=== PATIENT | female | born 1960 | race Caucasian/White ===

== ENCOUNTER 2016-12-16 07:43 | Emergency (ER) | payer OTHER ==
[2016-12-16 08:22] VITALS: BP 110/66
[2016-12-16] MEDS ORDERED: Lidocaine/Epineph/Tetraca SOL* (LET solution) 4 ML BTL TOPICAL ONE (08:33)
[2016-12-16] MEDS ORDERED: Acetaminophen TAB* 325 MG PO ONE (08:33)
--- NOTE | 2016-12-30 23:51 | ED ---
Colleen Christensen Matthew, scribed for Paul Cueto MD on 12/16/16 at 0916 . Laceration/Wound HPI - HPI Summary HPI Summary: A 56 y/o female presents to the ED with a facial laceration at 07:45 this morning while at work. The pain is rated 5/10 in severity. The patient states that a part of a filtration unit weighing approximately 25LBS hit the patient on the nose and chin. The patient denies LOC and headache. Her last tetanus shot was a few years ago. - History of Current Complaint Stated Complaint: FACIAL LAC Time Seen by Provider: 12/16/16 08:30 Hx Obtained From: Patient Onset/Duration: Sudden Onset, Lasting Hours, Still Present Aggravating: Nothing Timing: Constant Onset Severity: Moderate Current Severity: Moderate Pain Intensity: 5 Pain Scale Used: 0-10 Numeric Associated Signs & Symptoms: Pain - Facial - Allergy/Home Medications Allergies/Adverse Reactions: Allergies Allergy/AdvReac Type Severity Reaction Status Date / Time No Known Allergies Allergy Verified 02/13/15 05:50 PMH/Surg Hx/FS Hx/Imm Hx Previously Healthy: Yes Endocrine/Hematology History: Denies: Hx Diabetes - Cancer History Hx Chemotherapy: No Hx Radiation Therapy: No Infectious Disease History: No Infectious Disease History: Denies: Traveled Outside the [place] in Last 30 Days - Family History Family History: No FHx of breast CA - Social History Alcohol Use: Occasionally Substance Use Type: Reports: None Smoking Status (MU): Never Smoked Tobacco Review of Systems Constitutional: Negative Negative: Fever, Chills Eyes: Negative Negative: Erythema ENT: Negative Negative: Sore Throat Cardiovascular: Negative Negative: Chest Pain Respiratory: Negative Negative: Shortness Of Breath, Cough Gastrointestinal: Negative Negative: Abdominal Pain, Vomiting, Diarrhea, Nausea Genitourinary: Negative Negative: dysuria, hematuria Musculoskeletal: Negative Negative: Myalgia, Edema - pedal Skin: Other - facial lacerations (Nose & Chin) Neurological: Negative Psychological: Normal All Other Systems Reviewed And Are Negative: Yes Physical Exam Triage Information Reviewed: Yes Vital Signs On Initial Exam: Initial Vitals Temp Pulse Resp BP Pulse Ox 98.4 F 64 15 110/66 100 12/16/16 07:50 12/16/16 07:50 12/16/16 07:50 12/16/16 07:50 12/16/16 07:50 Vital Signs Reviewed: Yes Appearance: Positive: Well-Appearing, Well-Nourished Skin: Positive: Other - Right lower lip laceration extending 1cm to the chin; linear laceration that was deep to fatty tissue of the lip. Nose laceration at the bridge of the nose, semicircular flap, which was ecchymotic at time of arrival. Head/Face: Positive: Other - Normocephalic; Atraumatic Eyes: Positive: Conjunctiva Clear Neck: Positive: No Lymphadenopathy, Other: - Musculoskeletal ROM normal neck Respiratory/Lung Sounds: Positive: Breath Sounds Present, Other - Normal Effort. Negative: Rales, Stridor, Tracheal Deviation, Wheezes Cardiovascular: Positive: RRR Musculoskeletal: Negative: Edema Left, Edema Right Neurological: Positive: Alert, Oriented to Person Place, Time Psychiatric: Positive: Normal, Affect/Mood Appropriate Procedures - Procedure Summary Procedure Summary: Right lower lip laceration extending 1cm to the chin. It is a linear laceration that extends deep into the fatty tissue of the lip that was repaired with 2 5.0 prolene in simple interrupted pattern, and one 5.0 absorbable simple interrupted suture. The vermilion border was aligned and the initial suture. Nose laceration at the bridge of the nose, semicircular flap, which was ecchymotic at time of arrival. The laceration was tacked down with 4 5.0 prolene simple interrupted sutures Patient understood that the skin was de-vascularized and would likely become narcotic. It was explained that she would lose the skin and her wound would heal by secondary intention. - Laceration/Wound Repair 3 Location: mouth Description: Linear Anesthesia: 2.0%, Lido Length, Depth and Shape: Right lower lip extending 1cm to the chin, deep to fatty tissue of the lip Betadine Prep?: Yes Laceration/Wound Explored: clean Closure: Single Layer Suture Type: Prolene Layer Closure?: Yes Sterile Dressing Applied?: Yes 4 Location: face Description: Irregular - semicircular Anesthesia: Local, 2.0%, Lido Betadine Prep?: Yes Laceration/Wound Explored: clean Closure: Single Layer Suture Type: Prolene - 5.0 Number of Sutures: 4 Layer Closure?: Yes Sterile Dressing Applied?: Yes Diagnostics - Vital Signs Vital Signs Temp Pulse Resp BP Pulse Ox 12/16/16 07:50 98.4 F 64 15 110/66 100 - Laboratory Lab Statement: Any lab studies that have been ordered have been reviewed, and results considered in the medical decision making process. Laceration Repair Course/Dx - Course Assessment/Plan: A 56 y/o female presents to the ED with a facial laceration since this morning. The patient had a piece of equipment (~25LBS) fall on her face while at work. The patient sustained two lacerations. The first was a 1cm linear laceration extending from the right lower lip to the chin. The second laceration was a semicircular at the bridge of the nose and was ecchymotic at time the of arrival. Both lacerations were sutured. She denies headache and LOC. She will be discharged home and follow-up with her PCP for suture removal in 7 days. It was also explained that she would lose the skin on the semicircular flap of skin on her nose and her wound would heal by secondary intention. - Clinical Impression Provider Diagnoses: Laceration of nose, Lip laceration Discharge - Discharge Plan Condition: Stable Disposition: HOME Patient Education Materials: Care For Your Stitches (ED), Stitches Removal (ED) , Facial Laceration (ED) Forms: *Work Release Referrals: [facility] [Outside] - 7 Days Additional Instructions: Please follow-up with your primary care physician in 7 days for suture removal. The documentation as recorded by the Colleen mederos Matthew accurately reflects the service I personally performed and the decisions made by , Paul Cueto MD.
== END 2016-12-16 10:47 | disposition home or self-care (01) ==
LOC: ED 07:43
DX: S01.511A Laceration without foreign body of lip, initial encounter (principal); S01.81XA Laceration without foreign body of other part of head, initial encounter; W22.8XXA Striking against or struck by other objects, initial encounter; Y93.9 Activity, unspecified; Y92.9 Unspecified place or not applicable; Y99.9 Unspecified external cause status
CPT/HCPCS: 12013; 99281; A9270-GY

== ENCOUNTER 2016-12-22 08:42 | Emergency (ER) | payer SELFPAY ==
[2016-12-22 08:51] VITALS: BP 114/59
--- NOTE | 2016-12-22 08:59 | UC ---
HPI Wound/Suture Re-check - HPI Summary HPI Summary: here for suture removal on bridge of nose and lip sutures placed 12/16/16 and to be removed 12/23/16. slipped pulling a stainless steel strainer hit her in the face has had some neck pain since injury no LOC at time of accident geting tension in her neck muscles that worsens throughout the day intermittent headaches that start in the back of her neck and radites to the front of her head denies nausea, photophobia , vision changes taking ibuprofen for headache with relief. - History Of Current Complaint Chief Complaint: [facility] Stated Complaint: SUTURE REMOVAL Time Seen by Provider: 12/22/16 08:44 Hx Obtained From: Patient Onset/Duration: Gradual Onset, Lasting Days, Still Present - Allergies/Home Medications Allergies/Adverse Reactions: Allergies Allergy/AdvReac Type Severity Reaction Status Date / Time No Known Allergies Allergy Verified 02/13/15 05:50 PMH/Surg Hx/FS Hx/Imm Hx Previously Healthy: Yes Endocrine History Of: Denies: Diabetes Cancer History Of: Denies: Breast Cancer - Surgical History Surgical History: None - Family History Known Family History: Positive: None - non-contributory Negative: Cardiac Disease, Hypertension, Diabetes - Social History Occupation: Employed Full-time Alcohol Use: Occasionally Substance Use Type: None Smoking Status (MU): Never Smoked Tobacco Review of Systems Constitutional: Negative Skin: Other - sutures in lip and nose ENT: Negative Respiratory: Negative Cardiovascular: Negative Gastrointestinal: Negative Genitourinary: Negative Motor: Negative Neurovascular: Negative Musculoskeletal: Negative Neurological: Negative Psychological: Negative All Other Systems Reviewed And Are Negative: Yes Physical Exam Triage Information Reviewed: Yes Appearance: No Pain Distress, Well-Nourished Vital Signs: Initial Vital Signs Temp 98.7 F 12/22/16 08:48 Pulse 69 12/22/16 08:48 Resp 16 12/22/16 08:48 BP 114/59 12/22/16 08:48 Pulse Ox 100 12/22/16 08:48 Vital Signs Reviewed: Yes Eyes: Positive: Conjunctiva Clear, Other: - PERRL ENT: Positive: Pharynx normal, TMs normal Neck: Positive: No Lymphadenopathy, Other: - no cspine tenderness Respiratory: Positive: Lungs clear, Normal breath sounds, No respiratory distress Cardiovascular: Positive: RRR, No Murmur Abdomen Description: Positive: Nontender, Soft Bowel Sounds: Positive: Present Musculoskeletal: Positive: No Edema, Other: - tenderness in trapezius musculature Neurological: Positive: Alert, Other: - CN ll-X11, negative Rhomberg Psychological Exam: Normal Skin Exam: Other - laceration with 4 sutures -bridge of nose well approximated no drainage or erythema right lower lip - with 2 sutures -well approximated no drainage or erythema Procedures - Procedure Summary Procedure Summary: 4 sutures removed from bridge of nose 2 sutures removed from lip steristrips placed over both laceration pt tolerated well Course/Dx - Course Course Of Treatment: exam completed. headache seems to be caused by muscle tension, no halina defecits or red flags to warrant imaging - Differential Dx - Laceration/Wound Differential Diagnoses: Suture Removal Provider Diagnoses: suture removal, tension headache Discharge - Discharge Plan Condition: Stable Disposition: HOME Patient Education Materials: Stitches Removal (ED), Tension Headache (ED) Referrals: [facility] [Outside] Additional Instructions: keep you steristrips in place until they all off keep them clean and dry return for any signs of infection which include increased redness swelling pain or you develop a fever continue to use ibuprofen for pain if no improvement in headache or symptoms worsen please return to primary care provider or urgent care for further care.
[2016-12-22] MEDS ORDERED: Benzoin Compound STICK ONE (09:22)
== END 2016-12-22 09:33 | disposition home or self-care (01) ==
LOC: UCEAST 08:42
DX: Z48.02 Encounter for removal of sutures (principal); G44.209 Tension-type headache, unspecified, not intractable

== ENCOUNTER 2018-02-26 10:49 | Emergency (ER) | payer OTHER ==
[2018-02-26 11:12] VITALS: BP 106/60
--- NOTE | 2018-02-26 11:17 | UC ---
FLU HPI - HPI Summary HPI Summary: Pt presents with body aches, fatigue, sore throat, and dry cough for the last week. She denies sick contacts and has not been taking anything OTC for her symptoms. Denies fever, chills, SOB, chest pain, abdominal pain, n/v/d/c. - History of Current Complaint Chief Complaint: UCGeneralIllness Stated Complaint: FLU SYMPTOMS Time Seen by Provider: 02/26/18 11:17 Hx Obtained From: Patient Severity Currently: Mild Severity Initially: Mild Pain Intensity: 2 Pain Scale Used: 0-10 Numeric - Allergy/Home Medications Allergies/Adverse Reactions: Allergies Allergy/AdvReac Type Severity Reaction Status Date / Time No Known Allergies Allergy Verified 02/26/18 11:12 PMH/Surg Hx/FS Hx/Imm Hx Previously Healthy: Yes - Surgical History Surgical History: None Surgery Procedure, Year, and Place: denies - Family History Known Family History: Positive: None Negative: Cardiac Disease, Hypertension, Diabetes - Social History Occupation: Employed Full-time Lives: With Family Alcohol Use: Occasionally Substance Use Type: None Smoking Status (MU): Never Smoked Tobacco Review of Systems Constitutional: Fatigue, Other - Body aches Skin: Negative Eyes: Negative ENT: Sore Throat Respiratory: Cough Cardiovascular: Negative Gastrointestinal: Negative Neurovascular: Negative Musculoskeletal: Negative Neurological: Negative Psychological: Negative All Other Systems Reviewed And Are Negative: Yes Physical Exam - Summary Physical Exam Summary: GENERAL: NAD. WDWN. No pain distress. SKIN: No rashes, sores, ulcers, masses, lesions. HEENT: Head: AT/NC Eyes: EOM intact. Conjunctiva clear without inflammation or discharge. Ears: Hearing grossly normal. TMs intact, no bulging, erythema, or edema. Nose: Nasal mucosa pink and moist. NTTP maxillary and frontal sinus. Throat: Posterior oropharynx with mild erythema. No exudates or tonsillar enlargement. Uvula midline. NECK: Supple. Nontender. No lymphadenopathy. CHEST: CTAB. No r/r/w. No accessory muscle use. Breathing comfortably and in no distress. CV: RRR. Without m/r/g. Pulses intact. Brisk cap refill. NEURO: Alert. CN II-XII grossly intact. PSYCH: Age appropriate behavior. Triage Information Reviewed: Yes Vital Signs: Initial Vital Signs Temp 99.8 F 02/26/18 11:08 Pulse 72 03/31/18 11:08 Resp 18 02/26/18 11:08 BP 106/60 02/26/18 11:08 Pulse Ox 99 02/26/18 11:08 Flu Course/Dx - Course Course Of Treatment: POC flu B positive. Advised rest, fluids, and tylenol prn fever/discomfort. Rx for tessalon and cough syrup at bedtime. - Differential Dx/Diagnosis Provider Diagnoses: Influenza B Discharge - Sign-Out/Discharge Documenting (check all that apply): Discharge - Discharge Plan Condition: Stable Disposition: HOME Prescriptions: Benzonatate CAP* [Tessalon 100 MG CAP*] 100 mg PO TID PRN #15 cap PRN Reason: Cough Codeine Phosphate/Guaifenesin [Guaifen-Codeine 100-10 mg/5 ml] 5 ml PO BEDTIME PRN #35 ml MDD 5mL PRN Reason: Cough Patient Education Materials: Influenza (DC) Referrals: Alcides Bae MD [Primary Care Provider] - Additional Instructions: If you develop a fever, shortness of breath, chest pain, new or worsening symptoms - please call your PCP or go to the ED. - Billing Disposition and Condition Condition: STABLE Disposition: HOME
== END 2018-02-26 11:52 | disposition home or self-care (01) ==
LOC: UCEAST 10:49
DX: J10.1 Influenza due to other identified influenza virus with other respiratory manifestations (principal)
CPT/HCPCS: 87502; 99212; G0463